=== PATIENT | male | born 1980 | race Caucasian/White ===

== ENCOUNTER 2017-06-04 22:15 | Emergency (ER) | payer BC, SELFPAY ==
[2017-06-04 22:17] VITALS: BP 150/95; PULSE 120; RESP 18; TEMP 36.4; O2SAT 98
--- NOTE | 2017-06-04 22:23 | [facility].EDGENADL ---
ED Disposition Clinical Impression: Heroin overdose Qualifiers: Encounter type: initial encounter Injury intent: accidental or unintentional Qualified Code(s): T40.1X1A - Poisoning by heroin, accidental (unintentional), initial encounter Disposition: Left Against Medical Advice Condition on Discharge: Fair Instructions: DI for Drug Overdose in Adults Additional Instructions: Patient should be observed by others. If he becomes unresponsive, call 911. - Critical Care Critical Care Time: No Attestation: On , the high probability of a clinically significant, sudden or life threatening deterioration of the following system(s) required my full and direct attention, intervention and personal management. The time I documented below is in addition to time spent performing reported procedures but includes the following listed in this critical care notation. Medical Decision Making Vital Signs: 06/04/17 22:17 Temperature 97.5 F L Temperature Source Oral Pulse Rate [Right Brachial] 120 H Respiratory Rate 18 Blood Pressure [Right Arm] 150/95 Blood Pressure Mean [Right Arm] 113 Blood Pressure Source [Right Arm] Automatic Cuff Blood Pressure Position [Right Arm] Sitting 02 Sat by Pulse Oximetry 98 Oxygen Delivery Method Room Air - Dave Inquiry Pt receiving controlled substance: No General Adult HPI - General Chief complaint: Overdose Stated complaint: HEROIN OVERDOSE Mode of Arrival: EMS Limitations: No Limitations Description of Symptoms (Recalled from ER Triage Doc. by RN): HEROIN OVERDOSE - History of Present Illness HPI narrative: The patient is brought in by ambulance for an overdose. The patient admits to injecting heroin and accidentally overdosing. Family found him in the bathroom. He had apparently already started to arouse. He was given nasal Narcan in route. The patient now says that he wants to sign out does not want to be treated. I spoke with him and recommended that he be observed in the emergency department for couple of hours. I advised him of the reasoning for this. If the Narcan wears off before any opiate in his system he could become unresponsive and apneic again, leading to . He says he understands and wants to sign out. He is awake, alert, oriented ?3, speech is clear. He has intact decision-making capacity. 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
--- NOTE | 2017-06-04 22:26 | ED_ITS ---
ED Disposition Clinical Impression: Heroin overdose Qualifiers: Encounter type: initial encounter Injury intent: accidental or unintentional Qualified Code(s): T40.1X1A - Poisoning by heroin, accidental (unintentional), initial encounter Disposition: Left Against Medical Advice Condition on Discharge: Fair Instructions: DI for Drug Overdose in Adults Additional Instructions: Patient should be observed by others. If he becomes unresponsive, call 911. - Critical Care Critical Care Time: No Attestation: On , the high probability of a clinically significant, sudden or life threatening deterioration of the following system(s) required my full and direct attention, intervention and personal management. The time I documented below is in addition to time spent performing reported procedures but includes the following listed in this critical care notation. Medical Decision Making Vital Signs: 06/04/17 22:17 Temperature 97.5 F L Temperature Source Oral Pulse Rate [Right Brachial] 120 H Respiratory Rate 18 Blood Pressure [Right Arm] 150/95 Blood Pressure Mean [Right Arm] 113 Blood Pressure Source [Right Arm] Automatic Cuff Blood Pressure Position [Right Arm] Sitting 02 Sat by Pulse Oximetry 98 Oxygen Delivery Method Room Air - Dave Inquiry Pt receiving controlled substance: No General Adult HPI - General Chief complaint: Overdose Stated complaint: HEROIN OVERDOSE Mode of Arrival: EMS Limitations: No Limitations Description of Symptoms (Recalled from ER Triage Doc. by RN): HEROIN OVERDOSE - History of Present Illness HPI narrative: The patient is brought in by ambulance for an overdose. The patient admits to injecting heroin and accidentally overdosing. Family found him in the bathroom. He had apparently already started to arouse. He was given nasal Narcan in route. The patient now says that he wants to sign out does not want to be treated. I spoke with him and recommended that he be observed in the emergency department for couple of hours. I advised him of the reasoning for this. If the Narcan wears off before any opiate in his system he could become unresponsive and apneic again, leading to . He says he understands and wants to sign out. He is awake, alert, oriented ?3, speech is clear. He has intact decision- making capacity. 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
[2017-06-04 22:32] VITALS: BP 150/95; PULSE 120; RESP 16; TEMP 36.4; O2SAT 98
== END 2017-06-04 22:25 | disposition left against medical advice (07) ==
PROVIDERS: Emergency Provider Emergency Medicine; Family Provider Family Medicine
DX: T40.1X1A Poisoning by heroin, accidental (unintentional), initial encounter (principal)
CPT/HCPCS: 99281